=== PATIENT | female | born 1990 | race Hispanic/Latino ===

== ENCOUNTER 2016-03-26 23:58 | Outpatient (CLI) | payer MEDICAID ==
[2016-03-27] MEDS ORDERED: LACTATED RINGERS 1,000 ML ONE (00:09)
[2016-03-27] MEDS ORDERED: LACTATED RINGERS 500 ML IV ONE (00:13)
[2016-03-27] MEDS ORDERED: BRETHINE SUB-Q PRN (00:14)
[2016-03-27 00:18] VITALS: BP 122/78
[2016-03-27 00:33] LABS: Urine Drugs of Abuse Note Disclamer
[2016-03-27 00:39] LABS: Bilirubin,Urine NEG (Negative); Blood,Urine MOD (Negative); Ketones,Urine NEG (Negative); Leukocyte Esterase,Urine NEG (Negative); Mucus,Urine FEW /HPF; Nitrite,Urine NEG (Negative); Protein,Urine <15 mg/dL mg/dL (Negative); Urobilinogen,Urine < 2.0 mg/dL (<2.0)
[2016-03-27] MEDS ORDERED: ZOFRAN IV ONE (00:45)
== END 2016-03-27 01:45 | disposition home or self-care (01) ==
LOC: TRG 23:58
PROVIDERS: ATTEND Obstetrics & Gynecology
DX: Z34.90 Encounter for supervision of normal pregnancy, unspecified, unspecified trimester (principal); Z3A.00 Weeks of gestation of pregnancy not specified
CPT/HCPCS: 81001; G0479; J2405; J3105; J7120; 80307

== ENCOUNTER 2016-04-21 23:24 | Outpatient (CLI) | payer MEDICAID ==
[2016-04-21 23:48] VITALS: BP 122/73
[2016-04-22] MEDS ORDERED: LACTATED RINGERS 1,000 ML ONE (00:47)
[2016-04-22] MEDS ORDERED: LACTATED RINGERS 1,000 ML IV SCH (01:00)
[2016-04-22] MEDS: BRETHINE SUB-Q SCH ×2 (01:36→02:02)
[2016-04-22 01:51] LABS: Bilirubin,Urine NEG (Negative); Blood,Urine NEG (Negative); Ketones,Urine NEG (Negative); Leukocyte Esterase,Urine NEG (Negative); Mucus,Urine FEW /HPF; Nitrite,Urine NEG (Negative); Protein,Urine <15 mg/dL mg/dL (Negative); Urobilinogen,Urine < 2.0 mg/dL (<2.0)
== END 2016-04-22 02:30 | disposition home or self-care (01) ==
LOC: TRG 23:24
PROVIDERS: ATTEND Obstetrics & Gynecology
DX: O47.9 False labor, unspecified (principal); Z3A.00 Weeks of gestation of pregnancy not specified
CPT/HCPCS: 81001; 96360; 96372; J3105; J7120

== ENCOUNTER 2016-05-18 10:58 | Outpatient (CLI) | payer MEDICAID ==
[2016-05-18] MEDS ORDERED: VISTARIL PO PRN (15:32)
[2016-05-19 18:52] VITALS: BP 119/81
== END 2016-05-18 15:52 | disposition home or self-care (01) ==
LOC: TRG 10:58
PROVIDERS: ATTEND Obstetrics & Gynecology
DX: O47.03 False labor before 37 completed weeks of gestation, third trimester (principal); Z3A.38 38 weeks gestation of pregnancy
CPT/HCPCS: 59025; Q0177

== ENCOUNTER 2016-05-19 10:42 | Inpatient (IN) | payer MEDICAID ==
[2016-05-19] MEDS ORDERED: MINERAL OIL PO PRN (11:21)
[2016-05-19] MEDS ORDERED: ePHEDrine SULFATE IV PRN ×2 (11:21→13:38)
[2016-05-19] MEDS ORDERED: SUBLIMAZE IV PRN (11:21)
[2016-05-19] MEDS ORDERED: BRETHINE SUB-Q PRN (11:21)
[2016-05-19] MEDS ORDERED: ZOFRAN IV PRN ×2 (11:21→19:39)
[2016-05-19] MEDS ORDERED: BRETHINE IVP PRN (11:21)
[2016-05-19] MEDS ORDERED: STADOL IV PRN (11:21)
[2016-05-19] MEDS ORDERED: XYLOCAINE 2% INFILTRATI ONE (11:21)
[2016-05-19] MEDS: LACTATED RINGERS 1,000 ML IV SCH ×2 (11:30→13:07)
[2016-05-19 11:33] LABS: Hematocrit 41.5 % (30.3-42.9); Hemoglobin 13.6 gm/dl (10.1-14.3); Mean Corpuscular HGB Conc 33 % (30-34); Mean Corpuscular Hemoglobin 28 pg (28-32); Mean Corpuscular Volume 87 fl (79-97); Platelet Count 254 K/mm3 (140-440); Red Blood Count 4.79 M/mm3 (3.65-5.03); Red Cell Distribution Width 13.4 % (13.2-15.2); White Blood Count 11.6 K/mm3 (4.5-11.0)
[2016-05-19] MEDS ORDERED: LACTATED RINGERS 1,000 ML IV SCH (12:00)
[2016-05-19] MEDS ORDERED: PITOCin/NS 20 UNIT/1000ML DRIP 20 UNITS/1,000 ML BAG IV SCH ×2 (12:00)
[2016-05-19] MEDS ORDERED: PITOCin/NS 30 UNIT/500ML 30 UNITS/500 ML BAG IV SCH (12:00)
[2016-05-19] MEDS ORDERED: ePHEDrine SULFATE ONE (12:59)
[2016-05-19] MEDS ORDERED: NARCAN 2 MG/2 ML IV PRN (13:38)
--- NOTE | 2016-05-19 13:38 | Anesthesia Consultation ---
Anesthesia Consult and Med Hx Date of service: 05/19/16 - Airway Anesthetic Teeth Evaluation: Good ROM Head & Neck: Adequate Mental/Hyoid Distance: Adequate Mallampati Class: Class II Intubation Access Assessment: Probably Good - Pulmonary Exam CTA: Yes - Cardiac Exam Cardiac Exam: RRR - Pre-Operative Health Status ASA Pre-Surgery Classification: ASA2 Proposed Anesthetic Plan: Epidural - Pre-Anesthesia Comment Pre-Anesthesia Comments: plt: 254 - Pulmonary Hx Asthma: No COPD: No Hx Pneumonia: No - Cardiovascular System Hx Hypertension: No - Central Nervous System Hx Seizures: No Hx Psychiatric Problems: No - Endocrine Hx Renal Disease: No Hx End Stage Renal Disease: No Hx Hypothyroidism: No Hx Hyperthyroidism: No - Hematic Hx Anemia: No Hx Sickle Cell Disease: No - Other Systems Hx Alcohol Use: No
[2016-05-19] MEDS ORDERED: fentaNYL-BUPIV 2 MCG/ML-0.125% 200 MCG/100 ML BAG EPIDURAL SCH (14:00)
[2016-05-19] MEDS ORDERED: XYLOCAINE MPF 2% ONE (15:39)
--- NOTE | 2016-05-19 18:12 | History and Physical Report ---
History of Present Illness Date of examination: 05/19/16 Date of admission: 05/19/16 10:42 Chief complaint: I'm in labor History of present illness: Patient is a 25 year old who presented to the office dilated to 5cm and randy today. Her EDC is 05/28/16. She received adequate care. Her course was complicated by contractions since 28 weeks treated with Procardia. Past History Past Medical History: no pertinent history Past Surgical History: no surgical history Family/Genetic History: none Social history: single - Obstetrical History Expected Date of Delivery: 05/28/16 Actual Gestation: 38 Week(s) 5 Day(s) : 1 Para: 0 Medications and Allergies Allergies Allergy/AdvReac Type Severity Reaction Status Date / Time Penicillins Allergy Severe Hives Verified 05/19/16 11:08 Home Medications Medication Instructions Recorded Confirmed Last Taken Type Caplet 1 tab PO DAILY 02/16/16 02/16/16 1 Day Ago History Active Meds: Active Medications Butorphanol Tartrate (Stadol) 1 mg IV Q2H PRN PRN Reason: Pain, Moderate (4-6) Fentanyl (Sublimaze) 100 mcg IV Q2H PRN PRN Reason: Labor Pain Lactated Ringer's (Lactated Ringers) 1,000 mls @ 125 mls/hr IV DIRECT MELINA Last Admin: 05/19/16 13:07 Dose: 125 mls/hr Oxytocin/Sodium Chloride (Pitocin/Ns 20 Unit/1000ml Drip) 20 units in 1,000 mls @ 0 mls/hr IV DIRECT MELINA PRN Reason: As Directed Last Admin: 05/19/16 17:37 Dose: 250 mls/hr Lactated Ringer's (Lactated Ringers) 1,000 mls @ 125 mls/hr IV DIRECT MELINA Oxytocin/Sodium Chloride (Pitocin/Ns 20 Unit/1000ml Drip) 20 units in 1,000 mls @ 125 mls/hr IV DIRECT MELINA Oxytocin/Sodium Chloride (Pitocin/Ns 30 Unit/500ml) 30 units in 500 mls @ 1 mls /hr IV TITR MELINA; 1 MILLIUNITS/MIN PRN Reason: Protocol Fentanyl/Bupivacaine/Sodium Chlor (Fentanyl-Bupiv 2 Mcg/Ml-0.125%) 200 mcg in 100 mls @ 12 mls/hr EPIDURAL TITR MELINA PRN Reason: Protocol Last Admin: 05/19/16 14:11 Dose: 12 mls/hr Mineral Oil (Mineral Oil) 30 ml PO QHS PRN PRN Reason: Constipation Last Admin: 05/19/16 17:30 Dose: 30 ml Ondansetron HCl (Zofran) 4 mg IV Q8H PRN PRN Reason: Nausea And Vomiting Oxytocin (Pitocin) 10 unit IM ONCE ONE Stop: 05/19/16 18:56 Last Admin: 05/19/16 17:45 Dose: 10 unit Review of Systems All systems: negative Genitourinary: vaginal bleeding, contractions - Vital Signs Vital signs: Vital Signs Pulse BP 75 138/84 05/19/16 10:54 05/19/16 10:54 Temp Pulse Resp BP Pulse Ox 98.6 F 75 18 138/84 05/19/16 11:20 05/19/16 10:54 05/19/16 15:20 05/19/16 10:54 - Physical Exam Breasts: Cardiovascular: Regular rate, Normal S1, Normal S2 Lungs: Positive: Clear to auscultation, Normal air movement Abdomen: Positive: normal appearance, soft, normal bowel sounds. Negative: distention, tenderness Vulva: both: normal Vagina: Positive: normal moisture. Negative: discharge Cervix: Negative: lesion, discharge Uterus: Positive: normal size, normal contour Adnexa: both: normal Anus/Rectum: Positive: normal perianal skin, heme negative. Negative: rectal mass, hemorrhoids Extremities: Deep Tendon Reflex Grade: Normal +2 - Obstetrical FHR: auscultation normal, category 1 Cervical Dilatation: 5 Cervical Effacement Percentage: 90 station: -1 Uterine Contraction Pattern: Regular Uterine Tone Measurement Phase: Contraction Uterine Contraction Intensity: Moderate Results Result Diagrams: 05/19/16 11:10 Abnormal lab results 05/19/16 Range/Units 11:10 WBC 11.6 H (4.5-11.0) K/mm3 All other labs normal. Assessment and Plan IUP at 38.5 weeks who presents in active labor. Admit to L&D. Administer epidural. AROM if needed. Anticipate .
--- NOTE | 2016-05-19 18:16 | Procedure Note ---
OB Delivery Note - Delivery Date of Delivery: 05/19/16 Surgeon: KARL BELTRE Estimated blood loss: other (250) - Vaginal Delivery presentation: vertex Delivery position: OA Intrapartum events: none Delivery induction: none Delivery monitor: external FHT, external uterine Route of delivery: Delivery placenta: spontaneous Delivery cord: 3 umbilical vessels Delivery laceration: other (vaginal mucosa) Delivery repair: vicryl Anesthesia: epidural Delivery comments: Viable male delivered over intact perineum and placed on maternal abdomen after being suctioned. Cord clamped and cut when done pulsating. Placenta delivered spontaneously and intact with 3vc. Small laceration repaired and hemostatic. Patient tolerated procedure well. Weight 7 pounds 3 ounces. - Infant A at 1 minute: 8 at 5 minutes: 9 Infant Gender: Male (7 pounds 3 ounces)
[2016-05-19] MEDS ORDERED: TYLENOL PO PRN (19:39)
[2016-05-19] MEDS ORDERED: PHENERGAN PO PRN (19:39)
[2016-05-19] MEDS ORDERED: TUCKS PAD TP PRN (19:39)
[2016-05-19] MEDS ORDERED: NORCO 5/325 PO PRN (19:39)
[2016-05-19] MEDS ORDERED: DERMOPLAST TP PRN (19:39)
[2016-05-19] MEDS ORDERED: LANSINOH TP PRN (19:39)
[2016-05-19] MEDS ORDERED: BENADRYL PO PRN (19:39)
[2016-05-19] MEDS ORDERED: DULCOLAX PR PRN (19:39)
[2016-05-19] MEDS ORDERED: SODIUM CHLORIDE FLUSH SYRINGE 10 ML IV NR (19:39)
[2016-05-19] MEDS ORDERED: MILK OF MAGNESIA PO PRN (19:39)
[2016-05-19] MEDS: COLACE PO SCH (22:24)
[2016-05-19] MEDS: MOTRIN PO SCH (22:24)
[2016-05-20] MEDS: MOTRIN PO SCH ×2 (04:22→22:26)
[2016-05-20 07:34] LABS: Hematocrit 32.2 % (30.3-42.9); Hemoglobin 10.5 gm/dl (10.1-14.3)
[2016-05-20] MEDS ORDERED: PRENATAL VITAMIN PO SCH (10:00)
[2016-05-20] MEDS: COLACE PO SCH ×2 (12:15→22:29)
--- NOTE | 2016-05-20 14:01 | Progress Note ---
Subjective Date of service: 05/20/16 Interval history: 1st POD after normal vaginal delivery Patient is in the room, comfortable. Pain is well controlled with pain meds. Ambulated well, no residual neurological deficit. No anesthesia complications Objective - Constitutional Vitals: Vital Signs - 12hr 05/20/16 05/20/16 05/20/16 04:00 04:22 08:00 Temperature 98.4 F 98.4 F Pulse Rate [ 78 109 H Left] Respiratory 20 20 20 Rate Blood Pressure 124/81 121/79 [Left Arm] - Labs CBC & Chem 7: 05/20/16 06:55
[2016-05-20] MEDS ORDERED: BOOSTRIX IM ONE (18:16)
--- NOTE | 2016-05-20 21:16 | Progress Note ---
Assessment and Plan PPD 1 s/p . Doing well. No complaints. Patient planning to be discharged in the am. Subjective - Subjective Date of service: 05/20/16 Interval history: Patient is a 25 year old who presented to the office dilated to 5cm and randy today. Her EDC is 05/28/16. She received adequate care. Her course was complicated by contractions since 28 weeks treated with Procardia. Patient reports: appetite normal, voiding normally, pain well controlled, ambulating normally : doing well Objective - Vital Signs Latest vital signs: Vital Signs Temp Pulse Resp BP 05/20/16 17:30 98.1 F 90 20 122/79 05/20/16 08:00 98.4 F 109 H 20 121/79 05/20/16 04:22 20 05/20/16 04:00 98.4 F 78 20 124/81 05/20/16 00:00 98.2 F 97 H 20 117/73 05/19/16 23:35 98.6 F 79 22 125/76 Intake and Output 05/20/16 05/20/16 05/20/16 06:59 14:59 22:59 Intake Total 350 720 240 Output Total 400 Balance -50 720 240 Intake: Oral 720 240 Intake, Free Water 350 Output: Urine 400 Void 400 Other: Total, Intake Amount 240 240 Total, Output Amount 400 # Voids Void 1 1 1 - Exam Breasts: Present: deferred Cardiovascular: Present: Regular rate, Normal S1, Normal S2 Lungs: Present: Clear to auscultation, Normal air movement Abdomen: Present: normal appearance, soft, normal bowel sounds Vulva: both: normal Uterus: Present: normal, firm Extremities: Present: normal Deep Tendon Reflex Grade: Normal +2
--- NOTE | 2016-05-20 21:19 | Discharge Summary ---
Providers - Providers Date of Admission: 05/19/16 10:42 Date of discharge: 05/21/16 Attending physician: KARL BELTRE Primary care physician: KARL BELTRE Hospitalization Reason for admission: active labor Delivery: Episiotomy: none Laceration: none complications: none Discharge diagnosis: IUP at term delivered baby: male Hospital course: Unremarkable Condition at discharge: Good Disposition: DISCHARGED TO HOME OR SELFCARE Plan - Discharge Medications Prescriptions: Ibuprofen [Motrin 600 MG tab] 600 mg PO Q6H #30 tablet Vit-Fe Fumar-FA [ Vitamin] 1 each PO QDAY #30 tablet - Provider Discharge Summary Activity: routine, no sex for 6 weeks, no heavy lifting 4 weeks, no strenuous exercise Diet: routine Instructions: routine Additional instructions: [] Smoking cessation referral if applicable(refer to patient education folder for contact #) [] Refer to [facility]'s [facility] Booklet Call your doctor immediately for: * Fever > 100.5 * Heavy vaginal bleeding ( >1 pad per hour) * Severe persistent headache * Shortness of breath * Reddened, hot, painful area to leg or breast * Drainage or odor from incision. * Keep incision clean and dry at all times and follow doctor's instructions regarding bathing/showering - Follow up plan Follow up: KARL BELTRE MD [Primary Care Provider] - 6 Weeks
[2016-05-21] MEDS: MOTRIN PO SCH ×2 (06:24→06:25)
[2016-05-21] MEDS ORDERED: BOOSTRIX IM ONE (06:30)
[2016-05-21 13:13] VITALS: BP 116/66
== END 2016-05-21 11:45 | disposition home or self-care (01) | DRG 775 ==
LOC: LD 10:42 → OB 19:23
PROVIDERS: ADMIT Obstetrics & Gynecology; ATTEND Obstetrics & Gynecology
PROC: 0KQM0ZZ Repair Perineum Muscle, Open Approach (ICD-10-PCS; principal; 2016-05-19)
PROC: 3E0S3CZ (ICD-10-PCS; 2016-05-19)
PROC: 00HU33Z Insertion of Infusion Device into Spinal Canal, Percutaneous Approach (ICD-10-PCS; 2016-05-19)
DX: O71.4 Obstetric high vaginal laceration alone (principal); Z37.0 Single live birth; Z3A.38 38 weeks gestation of pregnancy; Z88.0 Allergy status to penicillin
CPT/HCPCS: 36415; 85014; 85018; 85027; 86850; 86900; 86901; 90471; 99211; A6250; G0463; J2590; J7120